=== PATIENT | male | born 1935 | race Caucasian/White ===

== ENCOUNTER → 2016-08-25 | Outpatient (CLI) | payer BC ==
[~2016-08-25] MED LIST: ASPEC81 PO; CIPR-255 PO; GLC850 PO; PRED1SUS OPR; VITAMIN PO
[2016-08-25 09:58] LABS: ESTIMATED AVERAGE GLUCOSE 94 mg/dl; HA1C FLAG Normal (Normal)
[2016-08-25 10:10] LABS: MEAN CELL VOLUME 96.5 fL (80-100); MEAN CORPUSCULAR HEMOGLOBIN 35.9 pg (25-34); MEAN CORPUSCULAR HGB CONC 37.2 g/dl (32-36); MEAN PLATELET VOLUME 10.6 fL (7.4-10.4); PLATELET COUNT 100 K/uL (130-400); RED BLOOD COUNT 4.04 M/uL (4.7-6.1); WHITE BLOOD COUNT 5.06 K/uL (4.8-10.8)
[2016-08-25 10:23] LABS: ALT/SGPT 25 U/L (12-78); AST/SGOT 19 U/L (15-37); BLOOD UREA NITROGEN 16 mg/dl (7-18); BUN/CREATININE RATIO 19.5 (10-20); CALCIUM 8.5 mg/dl (8.5-10.1); CARBON DIOXIDE 26 mmol/L (21-32); CHLORIDE 105 mmol/L (98-107); CHOLESTEROL 142 mg/dl (0-200); CREATININE 0.84 mg/dl (0.60-1.40); GLUCOSE 123 mg/dl (70-99); POTASSIUM 3.7 mmol/L (3.5-5.1); SODIUM 142 mmol/L (136-145); TRIGLYCERIDES 126 mg/dl (0-150); VERY LOW DENSITY LIPOPROT CALC 25 mg/dl
[2016-08-25 10:32] LABS: ALB/GLOB RATIO 1.3 (0.9-2); ALKALINE PHOSPHATASE 63 U/L (45-117); CHOLESTEROL/HDL RATIO 3.2; HDL CHOLESTEROL 44 mg/dl; LDL CHOLESTEROL CALCULATED 73 mg/dl
== END | disposition home or self-care (01) ==
LOC: C.LAB1850 07:56
PROVIDERS: ATTEND Family Medicine
DX: E53.8 Deficiency of other specified B group vitamins (principal); E03.9 Hypothyroidism, unspecified; E11.40 Type 2 diabetes mellitus with diabetic neuropathy, unspecified; R03.0 Elevated blood-pressure reading, without diagnosis of hypertension

== ENCOUNTER → 2016-10-03 | Outpatient (CLI) | payer BC | END | disposition home or self-care (01) | LOC: C.LABSPEC 11:05 | PROVIDERS: ATTEND Nurse Practitioner Family | DX: R39.9 Unspecified symptoms and signs involving the genitourinary system (principal) ==

== ENCOUNTER → 2016-10-07 | Outpatient (CLI) | payer BC ==
[~2016-10-07] MED LIST changes: +OPTIRAY 320 IV PRN
--- NOTE | 2016-10-07 09:51 | DIAGNOSTIC IMAGING REPORT ---
CT OF THE ABDOMEN AND PELVIS WITH AND WITHOUT CONTRAST HEMATURIA PROTOCOL CLINICAL HISTORY: Bladder carcinoma. Actinic keratosis. COMPARISON STUDY: IVP September 07, 2013. TECHNIQUE: Unenhanced and split bolus phase imaging of the abdomen and pelvis was performed. Injection of 119 cc Optiray [address] DOSE: 1031.24 mGy.cm FINDINGS: No renal, ureteral or bladder calculi are present. There is no hydronephrosis or hydroureter. There are small bilateral parapelvic cysts. No solid renal lesions are present. No upper tract urothelial lesions are identified. There is mild diffuse bladder wall thickening. No discrete bladder mass identified although the nondependent aspect of the bladder is unopacified. There are gallstones within the gallbladder. The spleen is mildly enlarged. The liver, adrenal glands and pancreas are normal. There is no biliary or pancreatic ductal dilatation. There is no evidence for a bowel obstruction. There is extensive left colon diverticulosis without evidence for acute diverticulitis. No enlarged abdominal lymph nodes are present. This extensive anterior osteophytosis of the spine. There is moderate coronary artery calcification. A few tiny nodules within visualized portions the lower lungs are likely benign. IMPRESSION: 1. No hydronephrosis or hydroureter. No upper tract urothelial lesions. 2. No urinary calculi. 3. Mild uniform bladder wall thickening. No discrete bladder mass identified although nondependent aspect of bladder unopacified. 3. No evidence of metastatic disease within the abdomen or pelvis. Electronically signed by: Feliz Clark M.D. 10/07/2016 9:49 AM Dictated Date/Time: 10/07/2016 9:41 AM
== END | disposition home or self-care (01) ==
LOC: C.CTS 08:59
PROVIDERS: ATTEND Urology
DX: C67.9 Malignant neoplasm of bladder, unspecified (principal); L57.0 Actinic keratosis

== ENCOUNTER → 2016-10-22 | Day surgery (SDC) | payer BC ==
[2016-10-09 08:37] VITALS: Ht 181.6 cm; Wt 87.3 kg
[~2016-10-22] VITALS: Ht 181.6 cm; Wt 87.3 kg
[~2016-10-22] MED LIST changes: +500ML BSS 0.3ML EPI 1:1000PF IRRIG ONE; +ACETAMINOPHEN 325 MG TAB PO PRN; +AMVISC PLUS 0.8ML SYRINGE INT OCU ONE; +ATROPINE SULFATE 0.1 MG/ML 5ML SYR IV PRN; +AcetaZOLAMIDE 250 MG TAB PO SCH; +BETAXOLOL HCL 0.25% OP SUSP PER DROP CHARGE OPR SCH; +BRIMONIDINE TART 0.2% OP SOLN PER DROP CHARGE ONE; +BSS FLUSH ONE; +ENDOCOAT 0.85ML SYRINGE INT OCU ONE; +EpHEDrine SULFATE INJ 50 MG/ML AMP IV PRN; +EpINEphrine INJ 1MG/ML AMP 1 MG/ML AMP ONE; -GLC850 PO; +LACTATED RINGER'S 1000ML 500 ML IV SCH; +LIDOCAINE 4% OP SOLN DROP CHARGE ONE; +LIDOCAINE 4% OP SOLN DROP CHARGE OPR SCH; +LIDOCAINE HCL 1% MPF 2 ML VIAL ONE; +MIDAZOLAM HCL 1 MG/ML 2ML VIAL ONE; +MIX: 4ML BSS 1ML EPI 1:1000 PF INSTIL ONE; +MOXIFLOXACIN OPH SOLN PER DROP CHARGE ONE; +OCUCOAT 1 ML SOLN IO ONE; +ONDANSETRON INJ 2 MG/ML 2 ML VIAL IV PRN; -OPTIRAY 320 IV PRN; +POVIDONE-IODINE OP SOLN 30 ML BTL ONE; +PROPARACAINE 0.5% OP SOLN PER DROP CHARGE OPR SCH; +TOBRAMYCIN/DEXAMETHASONE OPH OINT PER APPLN CHARGE ONE
[2016-10-22] MEDS: PHENYLEPHRINE HCL 2.5% OP SOLN PER DROP CHARGE OPR SCH ×2 (06:40→06:45)
[2016-10-22] MEDS: TROPICAMIDE 1% OP SOLN PER DROP CHARGE OPR SCH ×2 (06:41→06:46)
[2016-10-22] MEDS: CYCLOPENTOLATE HCL 1% OP SOLN PER DROP CHARGE OPR SCH ×2 (06:42→06:47)
[2016-10-22] MEDS: MOXIFLOXACIN OPH SOLN PER DROP CHARGE OPR SCH ×2 (06:43→06:50)
--- NOTE | 2016-10-22 06:56 | History & Physical Bridge - [place] ---
H&P Re-Evaluation Bridge Note: I have examined the patient, reviewed the History & Physical and in the interval since the performance of the History & Physical I have noted the following changes of clinical significance: No changes noted
--- NOTE | 2016-10-22 07:41 | Discharge Instructions-SurgCtr ---
Discharge Instructions Date of Service Oct 22, 2016. Visit Reason for Visit: Cataract Right Eye Discharge Discharge Diagnosis / Problem: lens implant right eye Discharge Goals Goal(s): Improve function Activity Recommendations Activity Limitations: resume your previous activity Lifting Limitations: no more than 10 pounds Exercise/Sports Limitations: gradually increase as tolerated May Resume Sexual Activity: when tolerated Shower/Bathe: tomorrow Driving or Machine Use: resume 1 day after discharge Anesthesia . Post Anesthesia Instructions: If you have had General Anesthesia or IV Sedation: * Do not drive today. * Resume driving when surgeon permits. * Do not make important decisions or sign legal documents today. * Call surgeon for: 1. Temperature elevations greater than 101 degrees F. 2. Uncontrollable pain. 3. Excessive bleeding. 4. Persistent nausea and vomiting. 5. Medication intolerance (nausea, vomiting or rash). * For nausea and vomiting use only clear liquids such as: tea, soda, bouillon until nausea subsides, then gradually increase diet as tolerated. * If you have any concerns or questions, call your surgeon's office. If physician is unavailable and it is an emergency, call 911 or go to the nearest emergency room. . Instructions / Follow-Up Instructions / Follow-Up ACTIVITY RECOMMENDATIONS: * Light activities. * Mild irritation and blurred vision are common for the first few days. * You may walk outside, read, watch television. * Redness around the white part of the eye is common. MEDICATIONS: Resume previous medications unless instructed otherwise by your surgeon. * Take white Diamox (Acetazolamide) tablet at 1 pm today. Start all eye drops at 1 pm today: * Eye drops (today and tomorrow): Prednisone - one drop in operative eye every 3 hours while awake Ofloxacin - one drop in operative eye every 3 hours while awake SPECIAL CARE INSTRUCTIONS: * Tape plastic shield over eye to sleep at night. Call your doctor at with any concerns or problems. FOLLOW UP VISIT: Follow-up with Dr Mcguire at [place] office as scheduled. Diet Recommendations Home Diet: no limitations Procedures Procedures Performed: cataract extraction with lens implant Pending Studies Studies pending at discharge: no Medical Emergencies . Who to Call and When: Medical Emergencies: If at any time you feel your situation is an emergency, please call 911 immediately. . Non-Emergent Contact Non-Emergency issues call your: Fire Technology Instructor Call Non-Emergent contact if: your pain is not controlled [phone] . . "Provider Documentation" section prepared by Darrell Mcguire.
[2016-10-22 07:43] VITALS: TEMP 36.7
--- NOTE | 2016-10-22 07:43 | [facility] Operative Report ---
Operative Report Date of Service Oct 22, 2016. Operative Report 1. PREOPERATIVE DIAGNOSIS: Senile nuclear cataract, right eye. 2. POSTOPERATIVE DIAGNOSIS: Senile nuclear cataract, right eye. 3. PROCEDURE: Phacoemulsification of right cataract with posterior chamber lens implant, type [employer]ch [employer] Lomb, model MI60L, power +21.0 diopters. ANESTHESIA: Local standby. SURGEON: Dr. Mcguire. COMPLICATIONS: None. OPERATING TIME: 10 minutes. 4. OPERATION AND FINDINGS: DESCRIPTION OF PROCEDURE: The right pupil was dilated. The anesthetic was administered using a topical technique. The right eye was prepped and draped. A speculum was placed. A clear corneal incision was formed. The chamber was filled with Amvisc Plus and Endocoat. Epinephrine solution was used. A paracentesis was placed. A capsulorrhexis was performed. The nucleus was hydrodissected. A dense lens was removed with phacoemulsification. Time was 10.79 seconds. The aspiration unit was used to remove the cortex. The capsule was filled with Amvisc Plus. The lens implant was folded and placed into the capsule. The incision was hydrated. The Amvisc was aspirated. The wound was secure. The chamber was deep. The pupil was round. Brimonidine, TobraDex ointment and Vigamox solution were placed. The speculum was removed. The patient was returned to the Recovery Room in stable condition. I attest to the content of the Intraoperative Record and any orders documented therein. Any exceptions are noted below. The scribe's documentation has been prepared in my presence, under my direction and personally reviewed by me in its entirety. I confirm that the note above accurately reflects all work, treatment, procedures, and medical decision making performed by me. I personally scribed for Darrell Mcguire M.D. (KELLY) on 10/22/16 at 07:42. Electronically submitted by Beatris Nash ([email or web address]).
--- NOTE | 2016-10-22 08:01 | Anesthesia Progress Nt - [facility] ---
Anesthesia Post Op Note Date & Time Oct 22, 2016 at 08:01 Vital Signs Pain Intensity: 0 Vital Signs Past 12 Hours Date Time Temp Pulse Resp B/P Pulse Ox O2 Delivery O2 Flow Rate FiO2 10/22/16 07:43 36.7 100 16 125/69 95 Room Air 10/22/16 06:32 36.6 95 20 164/65 97 Room Air Notes Mental Status: alert / awake / arousable, participated in evaluation Pt Amnestic to Procedure: Yes Nausea / Vomiting: adequately controlled Pain: adequately controlled Airway Patency, RR, SpO2: stable & adequate BP & HR: stable & adequate Hydration State: stable & adequate Anesthetic Complications: no major complications apparent
[2016-10-22 08:15] VITALS: BP 132/64; PULSE 89; O2SAT 96
== END | disposition home or self-care (01) ==
LOC: X.SURG 06:06
PROVIDERS: ATTEND Specialist
DX: H25.11 Age-related nuclear cataract, right eye (principal)

== ENCOUNTER → 2016-10-24 | Outpatient (CLI) | payer BC ==
[~2016-10-24] MED LIST changes: -500ML BSS 0.3ML EPI 1:1000PF IRRIG ONE; -ACETAMINOPHEN 325 MG TAB PO PRN; -AMVISC PLUS 0.8ML SYRINGE INT OCU ONE; -ATROPINE SULFATE 0.1 MG/ML 5ML SYR IV PRN; -AcetaZOLAMIDE 250 MG TAB PO SCH; -BETAXOLOL HCL 0.25% OP SUSP PER DROP CHARGE OPR SCH; -BRIMONIDINE TART 0.2% OP SOLN PER DROP CHARGE ONE; -BSS FLUSH ONE; -ENDOCOAT 0.85ML SYRINGE INT OCU ONE; -EpHEDrine SULFATE INJ 50 MG/ML AMP IV PRN; -EpINEphrine INJ 1MG/ML AMP 1 MG/ML AMP ONE; -LACTATED RINGER'S 1000ML 500 ML IV SCH; -LIDOCAINE 4% OP SOLN DROP CHARGE ONE; -LIDOCAINE 4% OP SOLN DROP CHARGE OPR SCH; -LIDOCAINE HCL 1% MPF 2 ML VIAL ONE; -MIDAZOLAM HCL 1 MG/ML 2ML VIAL ONE; -MIX: 4ML BSS 1ML EPI 1:1000 PF INSTIL ONE; -MOXIFLOXACIN OPH SOLN PER DROP CHARGE ONE; -OCUCOAT 1 ML SOLN IO ONE; -ONDANSETRON INJ 2 MG/ML 2 ML VIAL IV PRN; -POVIDONE-IODINE OP SOLN 30 ML BTL ONE; -PROPARACAINE 0.5% OP SOLN PER DROP CHARGE OPR SCH; -TOBRAMYCIN/DEXAMETHASONE OPH OINT PER APPLN CHARGE ONE
== END | disposition home or self-care (01) ==
LOC: C.LABSPEC 10:52
PROVIDERS: ATTEND Nurse Practitioner Family
DX: R39.9 Unspecified symptoms and signs involving the genitourinary system (principal)

== ENCOUNTER → 2016-10-28 | Outpatient (CLI) | payer BC | END | disposition home or self-care (01) | LOC: C.LABSPEC 11:40 | PROVIDERS: ATTEND Nurse Practitioner Family | DX: R39.9 Unspecified symptoms and signs involving the genitourinary system (principal) ==

== ENCOUNTER → 2016-11-05 | Day surgery (SDC) | payer BC ==
[2016-10-30 15:50] VITALS: Ht 181.6 cm; Wt 88.2 kg
[~2016-11-05] VITALS: Ht 181.6 cm; Wt 88.2 kg
[~2016-11-05] MED LIST changes: +500ML BSS 0.3ML EPI 1:1000PF IRRIG ONE; +ACETAMINOPHEN 325 MG TAB PO PRN; +AMVISC PLUS 0.8ML SYRINGE INT OCU ONE; +ATROPINE SULFATE 0.1 MG/ML 5ML SYR IV PRN; +AcetaZOLAMIDE 250 MG TAB PO SCH; +BETAXOLOL HCL 0.25% OP SUSP PER DROP CHARGE OPL SCH; +BRIMONIDINE TART 0.2% OP SOLN PER DROP CHARGE ONE; +BSS FLUSH ONE; +ENDOCOAT 0.85ML SYRINGE INT OCU ONE; +EpHEDrine SULFATE INJ 50 MG/ML AMP IV PRN; +EpINEphrine INJ 1MG/ML AMP 1 MG/ML AMP ONE; +LACTATED RINGER'S 1000ML 500 ML IV SCH; +LIDOCAINE 4% OP SOLN DROP CHARGE ONE; +LIDOCAINE 4% OP SOLN DROP CHARGE OPL SCH; +LIDOCAINE HCL 1% MPF 2 ML VIAL ONE; +MIDAZOLAM HCL 1 MG/ML 2ML VIAL ONE; +MIX: 4ML BSS 1ML EPI 1:1000 PF INSTIL ONE; +MOXIFLOXACIN OPH SOLN PER DROP CHARGE ONE; +OCUCOAT 1 ML SOLN IO ONE; +POVIDONE-IODINE OP SOLN 30 ML BTL ONE; +PROPARACAINE 0.5% OP SOLN PER DROP CHARGE OPL SCH; +TOBRAMYCIN/DEXAMETHASONE OPH OINT PER APPLN CHARGE ONE
[2016-11-05] MEDS: PHENYLEPHRINE HCL 2.5% OP SOLN PER DROP CHARGE OPL SCH ×2 (10:51→10:56)
[2016-11-05] MEDS: TROPICAMIDE 1% OP SOLN PER DROP CHARGE OPL SCH ×2 (10:52→10:57)
[2016-11-05] MEDS: CYCLOPENTOLATE HCL 1% OP SOLN PER DROP CHARGE OPL SCH ×2 (10:53→10:58)
[2016-11-05] MEDS: MOXIFLOXACIN OPH SOLN PER DROP CHARGE OPL SCH ×2 (10:54→11:04)
--- NOTE | 2016-11-05 11:36 | Discharge Instructions-SurgCtr ---
Discharge Instructions Date of Service Nov 05, 2016. Visit Reason for Visit: Left Cataract Discharge Discharge Diagnosis / Problem: lens implant left eye Discharge Goals Goal(s): Improve function Activity Recommendations Activity Limitations: resume your previous activity Lifting Limitations: no more than 10 pounds Exercise/Sports Limitations: gradually increase as tolerated May Resume Sexual Activity: when tolerated Shower/Bathe: tomorrow Driving or Machine Use: resume 1 day after discharge Anesthesia . Post Anesthesia Instructions: If you have had General Anesthesia or IV Sedation: * Do not drive today. * Resume driving when surgeon permits. * Do not make important decisions or sign legal documents today. * Call surgeon for: 1. Temperature elevations greater than 101 degrees F. 2. Uncontrollable pain. 3. Excessive bleeding. 4. Persistent nausea and vomiting. 5. Medication intolerance (nausea, vomiting or rash). * For nausea and vomiting use only clear liquids such as: tea, soda, bouillon until nausea subsides, then gradually increase diet as tolerated. * If you have any concerns or questions, call your surgeon's office. If physician is unavailable and it is an emergency, call 911 or go to the nearest emergency room. . Instructions / Follow-Up Instructions / Follow-Up ACTIVITY RECOMMENDATIONS: * Light activities. * Mild irritation and blurred vision are common for the first few days. * You may walk outside, read, watch television. * Redness around the white part of the eye is common. MEDICATIONS: Resume previous medications unless instructed otherwise by your surgeon. * Take white Diamox (Acetazolamide) tablet at 1 pm today. Start all eye drops at 1 pm today: * Eye drops (today and tomorrow): Prednisone - one drop in operative eye every 3 hours while awake Ofloxacin - one drop in operative eye every 3 hours while awake SPECIAL CARE INSTRUCTIONS: * Tape plastic shield over eye to sleep at night. Call your doctor at with any concerns or problems. FOLLOW UP VISIT: Follow-up with Dr Mcguire at [place] office as scheduled. Diet Recommendations Home Diet: no limitations Procedures Procedures Performed: cataract extraction with lens implant Pending Studies Studies pending at discharge: no Medical Emergencies . Who to Call and When: Medical Emergencies: If at any time you feel your situation is an emergency, please call 911 immediately. . Non-Emergent Contact Non-Emergency issues call your: Implementation Coordinator Call Non-Emergent contact if: your pain is not controlled [phone] . . "Provider Documentation" section prepared by Darrell Mcguire.
--- NOTE | 2016-11-05 11:37 | [facility] Operative Report ---
Operative Report Date of Service Nov 05, 2016. Operative Report 1. PREOPERATIVE DIAGNOSIS: Senile nuclear cataract, left eye. 2. POSTOPERATIVE DIAGNOSIS: Senile nuclear cataract, left eye. 3. PROCEDURE: Phacoemulsification of left cataract with posterior chamber lens implant, type B[employer]ch [employer] Lomb, model MI60L, power +22.0 diopters. ANESTHESIA: Local standby. SURGEON: Dr. Mcguire. COMPLICATIONS: None. OPERATING TIME: 10 minutes. 4. OPERATION AND FINDINGS: DESCRIPTION OF PROCEDURE: The left pupil was dilated. The anesthetic was administered using a topical technique. The left eye was prepped and draped. A speculum was placed. A clear corneal incision was formed. The chamber was filled with Amvisc Plus and Endocoat. Epinephrine solution was used. A paracentesis was placed. A capsulorrhexis was performed. The nucleus was hydrodissected. The lens was removed with phacoemulsification. Time was 4.90 seconds. The aspiration unit was used to remove the cortex. The capsule was filled with Amvisc Plus. The lens implant was folded and placed into the capsule. The incision was hydrated. The Amvisc was aspirated. The wound was secure. The chamber was deep. The pupil was round. Brimonidine, TobraDex ointment and Vigamox solution were placed. The speculum was removed. The patient was returned to the Recovery Room in stable condition. I attest to the content of the Intraoperative Record and any orders documented therein. Any exceptions are noted below. The scribe's documentation has been prepared in my presence, under my direction and personally reviewed by me in its entirety. I confirm that the note above accurately reflects all work, treatment, procedures, and medical decision making performed by me. I personally scribed for Darrell Mcguire M.D. ([email or web address]) on 11/05/16 at 11:37. Electronically submitted by Beatris Nash ([email or web address]).
[2016-11-05 11:41] VITALS: TEMP 36.5
--- NOTE | 2016-11-05 12:04 | Anesthesia Progress Nt - [facility] ---
Anesthesia Post Op Note Date & Time Nov 05, 2016 at 12:04 Vital Signs Pain Intensity: 0 Vital Signs Past 12 Hours Date Time Temp Pulse Resp B/P Pulse Ox O2 Delivery O2 Flow Rate FiO2 11/05/16 11:41 36.5 80 14 143/70 95 Room Air 11/05/16 10:45 36.7 86 18 151/87 97 Room Air Notes Mental Status: alert / awake / arousable, participated in evaluation Pt Amnestic to Procedure: Yes Nausea / Vomiting: adequately controlled Pain: adequately controlled Airway Patency, RR, SpO2: stable & adequate BP & HR: stable & adequate Hydration State: stable & adequate Anesthetic Complications: no major complications apparent
[2016-11-05 12:05] VITALS: BP 141/83; PULSE 77; O2SAT 96
== END | disposition home or self-care (01) ==
LOC: X.SURG 10:10
PROVIDERS: ATTEND Specialist
DX: H25.12 Age-related nuclear cataract, left eye (principal); Z85.51 Personal history of malignant neoplasm of bladder; Z79.82 Long term (current) use of aspirin

== ENCOUNTER → 2016-12-04 | Outpatient (CLI) | payer BC ==
[~2016-12-04] MED LIST changes: -500ML BSS 0.3ML EPI 1:1000PF IRRIG ONE; -ACETAMINOPHEN 325 MG TAB PO PRN; -AMVISC PLUS 0.8ML SYRINGE INT OCU ONE; -ATROPINE SULFATE 0.1 MG/ML 5ML SYR IV PRN; -AcetaZOLAMIDE 250 MG TAB PO SCH; -BETAXOLOL HCL 0.25% OP SUSP PER DROP CHARGE OPL SCH; -BRIMONIDINE TART 0.2% OP SOLN PER DROP CHARGE ONE; -BSS FLUSH ONE; -ENDOCOAT 0.85ML SYRINGE INT OCU ONE; -EpHEDrine SULFATE INJ 50 MG/ML AMP IV PRN; -EpINEphrine INJ 1MG/ML AMP 1 MG/ML AMP ONE; -LACTATED RINGER'S 1000ML 500 ML IV SCH; -LIDOCAINE 4% OP SOLN DROP CHARGE ONE; -LIDOCAINE 4% OP SOLN DROP CHARGE OPL SCH; -LIDOCAINE HCL 1% MPF 2 ML VIAL ONE; -MIDAZOLAM HCL 1 MG/ML 2ML VIAL ONE; -MIX: 4ML BSS 1ML EPI 1:1000 PF INSTIL ONE; -MOXIFLOXACIN OPH SOLN PER DROP CHARGE ONE; -OCUCOAT 1 ML SOLN IO ONE; -POVIDONE-IODINE OP SOLN 30 ML BTL ONE; -PROPARACAINE 0.5% OP SOLN PER DROP CHARGE OPL SCH; -TOBRAMYCIN/DEXAMETHASONE OPH OINT PER APPLN CHARGE ONE
== END | disposition home or self-care (01) ==
LOC: C.PATHSPEC 17:18
PROVIDERS: ATTEND Urology
DX: C67.9 Malignant neoplasm of bladder, unspecified (principal)

== ENCOUNTER → 2017-04-15 | Outpatient (CLI) | payer BC ==
[2017-04-15 09:38] LABS: HEMATOCRIT 38.6 % (42-52); MEAN CELL VOLUME 95.5 fL (80-100); MEAN CORPUSCULAR HEMOGLOBIN 34.9 pg (25-34); MEAN CORPUSCULAR HGB CONC 36.5 g/dl (32-36); RED BLOOD COUNT 4.04 M/uL (4.7-6.1); WHITE BLOOD COUNT 4.92 K/uL (4.8-10.8)
[2017-04-15 09:44] LABS: ESTIMATED AVERAGE GLUCOSE 97 mg/dl; HA1C FLAG Normal (Normal)
[2017-04-15 09:45] LABS: ALT/SGPT 21 U/L (12-78); AST/SGOT 18 U/L (15-37); BLOOD UREA NITROGEN 15 mg/dl (7-18); BUN/CREATININE RATIO 13.8 (10-20); CALCIUM 8.3 mg/dl (8.5-10.1); CARBON DIOXIDE 27 mmol/L (21-32); CHLORIDE 104 mmol/L (98-107); GLUCOSE 216 mg/dl (70-99); POTASSIUM 4.1 mmol/L (3.5-5.1); SODIUM 138 mmol/L (136-145)
[2017-04-15 10:03] LABS: MEAN PLATELET VOLUME 10.2 fL (7.4-10.4); PLATELET COUNT 98 K/uL (130-400)
[2017-04-15 10:06] LABS: BASO % 0.2 %; BASO ABS # 0.01 K/uL (0-0.2); COMPLETE YES; EOS % 1.8 %; HYPERSEGMENTED POLYS 1+; IG% 0.4 %; LYMPH % 22.8 %; LYMPH ABS # 1.12 K/uL (1.2-3.4); MONO % 7.1 %; NEUT % 67.7 %; PLT ESTIMATE DECREASED
[2017-04-15 10:18] LABS: ALB/GLOB RATIO 1.2 (0.9-2); ALKALINE PHOSPHATASE 62 U/L (45-117)
== END | disposition home or self-care (01) ==
LOC: C.LAB1850 08:13
PROVIDERS: ATTEND Family Medicine
DX: C67.9 Malignant neoplasm of bladder, unspecified (principal); E53.8 Deficiency of other specified B group vitamins; E11.9 Type 2 diabetes mellitus without complications

== ENCOUNTER → 2017-10-13 | Outpatient (CLI) | payer BC ==
[2017-10-13 09:40] LABS: BLOOD UREA NITROGEN 23 mg/dl (7-18); CALCIUM 8.6 mg/dl (8.5-10.1); CARBON DIOXIDE 26 mmol/L (21-32); GLUCOSE 204 mg/dl (70-99); POTASSIUM 3.9 mmol/L (3.5-5.1); SODIUM 137 mmol/L (136-145)
[2017-10-13 10:24] LABS: HEMOGLOBIN A1C 4.9 % (4.5-5.6)
== END | disposition home or self-care (01) ==
LOC: C.LAB1850 07:35
PROVIDERS: ATTEND Family Medicine
DX: E11.9 Type 2 diabetes mellitus without complications (principal)

== ENCOUNTER → 2017-12-17 | Outpatient (CLI) | payer BC | END | disposition home or self-care (01) | LOC: C.PATHSPEC 17:35 | PROVIDERS: ATTEND Urology | DX: Z85.51 Personal history of malignant neoplasm of bladder (principal) ==

== ENCOUNTER 2022-05-20 15:42 | Inpatient (IN) ==
[2022-05-20] MEDS ORDERED: SODIUM CHLORIDE 0.9% 500 ML IV SCH (16:30)
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
[2022-05-20 17:04] LABS: iSTAT Creatinine 0.9 mg/dl (0.6-1.3); iSTAT Hemoglobin 11.9 g/dl (14.0-18.0); iSTAT Ionized Calcium 1.14 mmol/l (1.12-1.32); iSTAT Potassium 4.1 mmol/L (3.3-5.0)
[2022-05-20 17:09] LABS: Basophils # (auto) 0.04 K/uL (0-0.2); Basophils % (auto) 0.7 %; Eosinophils # (auto) 0.04 K/uL (0-0.50); Eosinophils % (auto) 0.7 %; Hematocrit (blood only) 34.2 % (40.1-51.0); Hemoglobin 12.5 g/dl (14.0-18.0); Immature Granulocytes # (auto) 0.06 K/uL (0.00-0.02); Immature Granulocytes % (auto) 1.1 %; Lymphocytes # (auto) 0.63 K/uL (1.2-3.4); Lymphocytes % (auto) 11.3 %; Mean Corpuscular Hemoglobin 34.6 pg (25.0-34.0); Mean Corpuscular Hgb Conc 36.5 g/dL (32.0-36.0); Mean Corpuscular Volume 94.7 fL (80.0-100.0); Mean Platelet Volume 9.6 fL (9.4-12.4); Monocytes # (auto) 0.36 K/uL (0.24-0.82); Monocytes % (auto) 6.5 %; Neutrophils # (auto) 4.43 K/uL (1.4-6.5); Neutrophils % (auto) 79.7 %; Platelet Count 125 K/uL (130-400); RDW Coefficient of Variation 14.7 % (11.5-14.5); RDW Standard Deviation 50.4 fL (36.4-46.3); Red Blood Count 3.61 M/uL (4.63-6.08); White Blood Count 5.56 K/ul (4.8-10.8)
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
[2022-05-20 17:21] LABS: Partial Thromboplastin Ratio 0.9; Partial Thromboplastin Time 23.6 Seconds (21.0-31.0); Prothrombin Time 10.9 Seconds (9.0-12.0)
[2022-05-20] MEDS ORDERED: ACETAMINOPHEN 1,000 MG/100 ML VIAL IV STA (17:29)
[2022-05-20 17:32] LABS: Albumin Globulin Ratio 1.6 (0.9-2); Albumin Level 3.9 gm/dl (3.4-5.0); BUN Creatinine Ratio 19.8 (10-20); Bilirubin,Total 1.3 mg/dl (0.2-1.0); Calcium 8.8 mg/dl (8.5-10.1); Creatinine Clr Calc Pharmacy 64.9 ml/min; Est GFR (Non-African American) 70.8 ml/min; Globulin 2.4 gm/dl (2.5-4.0); Magnesium 1.7 mg/dl (1.7-2.4); Total Protein 6.3 gm/dl (6.0-8.3)
[2022-05-20 17:40] LABS: Troponin I High Sensitivity 319.1 pg/ml (0-20)
[2022-05-20 17:44] LABS: Thyroid Stimulating Hormone 9.872 uIu/ml (0.300-4.500)
[2022-05-20] MEDS ORDERED: OPTIRAY 300 500mL IV ONE (17:54)
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
[2022-05-20 18:21] LABS: T4 Free Thyroxine 0.79 ng/dl (0.61-1.60)
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
[2022-05-20 18:47] LABS: Appearance Urine Clear (Clear); Bilirubin Urine Negative (Negative); Blood Urine Negative (Negative); Color Urine Yellow; Glucose Urine UA 2+ (Negative); Ketones Urine 1+ (Negative); Leukocyte Esterase Urine Negative (Negative); Nitrite Urine Negative (Negative); Protein Urine Negative (Negative); Specific Gravity Urine 1.029 (1.000-1.030); Urobilinogen Urine Negative (Negative)
--- NOTE | 2022-05-20 19:18 | Billing Data ---
Date of Service May 20, 2022 Coding Level of Care Code 21514 Subseq Obs Care Lvl 3
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
[2022-05-20] MEDS ORDERED: CARBOHYDRATES FOR HYPOGLYCEMIA PO PRN (21:27)
[2022-05-20] MEDS ORDERED: DEXTROSE 50% 50 ML SYRINGE IV PRN (21:27)
[2022-05-20] MEDS ORDERED: GLUCAGON FOR INJ 1 MG VIAL SQ PRN (21:27)
[2022-05-20] MEDS ORDERED: GLUCOSE 10 TAB/TUBE PO PRN (21:27)
[2022-05-20] MEDS ORDERED: GLUCOSE 40% GEL 15 GM TUBE PO PRN (21:27)
[2022-05-20] MEDS: INSULIN ASPART PER UNIT SC SCH (22:02)
[2022-05-20] MEDS: MAGNESIUM SULFATE / D5W 1 GM/100 ML BAG IV SCH ×2 (22:03→23:56)
[2022-05-20] MEDS: MoRPHine SULFATE 2 MG/ML CARP IV PRN (22:06)
[2022-05-21 05:54] LABS: Basophils # (auto) 0.03 K/uL (0-0.2); Basophils % (auto) 0.4 %; Eosinophils # (auto) 0.02 K/uL (0-0.50); Eosinophils % (auto) 0.3 %; Hematocrit (blood only) 33.3 % (40.1-51.0); Hemoglobin 12.3 g/dl (14.0-18.0); Immature Granulocytes # (auto) 0.03 K/uL (0.00-0.02); Immature Granulocytes % (auto) 0.4 %; Lymphocytes # (auto) 0.84 K/uL (1.2-3.4); Mean Corpuscular Hemoglobin 34.7 pg (25.0-34.0); Mean Corpuscular Hgb Conc 36.9 g/dL (32.0-36.0); Mean Corpuscular Volume 94.1 fL (80.0-100.0); Mean Platelet Volume 9.7 fL (9.4-12.4); Monocytes # (auto) 0.65 K/uL (0.24-0.82); Monocytes % (auto) 9.3 %; Neutrophils # (auto) 5.44 K/uL (1.4-6.5); Neutrophils % (auto) 77.6 %; Platelet Count 123 K/uL (130-400); RDW Coefficient of Variation 14.8 % (11.5-14.5); Red Blood Count 3.54 M/uL (4.63-6.08); White Blood Count 7.01 K/ul (4.8-10.8)
[2022-05-21] MEDS: MoRPHine SULFATE 2 MG/ML CARP IV PRN ×2 (06:08→15:23)
[2022-05-21 06:34] LABS: Troponin I High Sensitivity 838.3 pg/ml (0-20)
[2022-05-21 06:51] LABS: BUN Creatinine Ratio 17.1 (10-20); Calcium 8.4 mg/dl (8.5-10.1); Creatinine Clr Calc Pharmacy 74.3 ml/min; Est GFR (African American) 92.2 ml/min; Est GFR (Non-African American) 79.5 ml/min; Magnesium 2.1 mg/dl (1.7-2.4); Potassium 3.7 mmol/L (3.5-5.1)
[2022-05-21] MEDS: INSULIN ASPART PER UNIT SC SCH ×4 (08:14→20:27)
[2022-05-21] MEDS ORDERED: POTASSIUM CHLORIDE CRTAB 20 MEQ TABCR PO STA (09:54)
[2022-05-21] MEDS: BENZONATATE 100 MG CAPSULE PO PRN ×3 (10:02→23:10)
[2022-05-21] MEDS: KETOROLAC TROMETHAMINE 15 MG/ML VIAL IV PRN ×2 (10:14→23:10)
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
--- NOTE | 2022-05-21 11:43 | XCELERA ---
[id number]
--- NOTE | 2022-05-21 14:21 | Electrocardiogram Report ---
Test Reason : Blood Pressure : / mmHG Vent. Rate : 096 BPM Atrial Rate : 096 BPM P-R Int : 256 ms QRS Dur : 146 ms QT Int : 370 ms P-R-T Axes : -25 131 012 degrees QTc Int : 467 ms Sinus rhythm with 1st degree A-V block Right bundle branch block Left posterior fascicular block Bifascicular block Abnormal ECG When compared with ECG of 12-FEB-2022 12:18, No significant change Confirmed by Darrell Liu ([id number]) on 05/21/2022 2:20:43 PM Referred By: REFERRED SELF Confirmed By:Darrell Liu
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
--- NOTE | 2022-05-21 16:57 | Billing Data ---
Date of Service May 21, 2022 Coding Level of Care Code 25831 Subseq Hosp Care Lvl 3
[2022-05-21] MEDS: TAMSULOSIN HCL 0.4 MG CAP PO SCH (20:26)
[2022-05-21] MEDS: ACETAMINOPHEN 325 MG TAB PO PRN (20:26)
[2022-05-22] MEDS: ACETAMINOPHEN 325 MG TAB PO PRN ×4 (06:24→21:14)
[2022-05-22] MEDS: BENZONATATE 100 MG CAPSULE PO PRN ×3 (06:24→21:14)
[2022-05-22 07:47] LABS: Basophils # (auto) 0.02 K/uL (0-0.2); Basophils % (auto) 0.3 %; Eosinophils # (auto) 0.05 K/uL (0-0.50); Eosinophils % (auto) 0.7 %; Hematocrit (blood only) 31.6 % (40.1-51.0); Hemoglobin 11.9 g/dl (14.0-18.0); Immature Granulocytes # (auto) 0.04 K/uL (0.00-0.02); Immature Granulocytes % (auto) 0.6 %; Lymphocytes # (auto) 0.74 K/uL (1.2-3.4); Lymphocytes % (auto) 11.1 %; Mean Corpuscular Hemoglobin 35.7 pg (25.0-34.0); Mean Corpuscular Hgb Conc 37.7 g/dL (32.0-36.0); Mean Corpuscular Volume 94.9 fL (80.0-100.0); Mean Platelet Volume 9.1 fL (9.4-12.4); Monocytes # (auto) 0.66 K/uL (0.24-0.82); Monocytes % (auto) 9.9 %; Neutrophils # (auto) 5.16 K/uL (1.4-6.5); Neutrophils % (auto) 77.4 %; Platelet Count 110 K/uL (130-400); RDW Coefficient of Variation 15.2 % (11.5-14.5); RDW Standard Deviation 51.2 fL (36.4-46.3); Red Blood Count 3.33 M/uL (4.63-6.08); White Blood Count 6.67 K/ul (4.8-10.8)
[2022-05-22 08:10] LABS: BUN Creatinine Ratio 24.5 (10-20); Calcium 8.2 mg/dl (8.5-10.1); Creatinine Clr Calc Pharmacy 64.8 ml/min; Est GFR (African American) 84.2 ml/min; Est GFR (Non-African American) 72.6 ml/min; Potassium 4.3 mmol/L (3.5-5.1)
[2022-05-22] MEDS: INSULIN ASPART PER UNIT SC SCH ×4 (08:34→21:12)
[2022-05-22] MEDS ORDERED: BENZONATATE 100 MG CAPSULE PO ONE (09:59)
[2022-05-22] MEDS ORDERED: ACETAMINOPHEN 650 MG SUPP PR STA (09:59)
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
[2022-05-22] MEDS ORDERED: LIDOCAINE 1% LOCAL 20 ML VIAL ONE (14:02)
[2022-05-22] MEDS ORDERED: VANCOMYCIN HCL 1000MG/20ML VIAL ONE ×2 (14:03→14:55)
[2022-05-22] MEDS ORDERED: WATER, STERILE FOR INJ 10 ML VIAL ONE ×2 (14:03→14:55)
[2022-05-22] MEDS ORDERED: BUPIVACAINE 0.25% 30 ML VIAL ONE (14:03)
--- NOTE | 2022-05-22 14:39 | Pre Anesthesia Assessment ---
Date of Service May 22, 2022 Pre Sedation Assessment Vital Signs Temp Pulse Pulse Resp BP Pulse Ox O2 Del Method 05/22/22 06:15 93 H 05/22/22 11:09 36.8 C 77 18 130/65 98 Room Air 05/22/22 07:00 Room Air 05/22/22 03:08 36.8 C 79 18 130/69 96 Room Air 05/21/22 22:19 66 05/21/22 22:54 36.8 C 68 16 126/60 96 Room Air 05/21/22 20:00 Room Air 05/21/22 15:09 81 05/21/22 14:55 36.5 C 89 18 145/75 H 96 Room Air Cardiovascular + regular rate and + regular rhythm Respiratory + respiratory effort normal Pre-Sedation Airway Assessment Smoking Status: Never smoker Hx Sleep Apnea: No Hx Difficult Intubation: No Short, Thick Neck: No Thyromental Distance: > or= 3.5 Finger Breadths Oral Cavity: + WNL Mallampati Class: III ASA: ASA3 Procedure Planning Contraindications for Sedation: none Current Medications Reviewed: Yes Notes The planned sedation has been discussed with the patient. Informed Consent was obtained. I have identified the patient, determined the appropriateness of sedation and have assessed the patient immediately prior to the procedure. All medicine(s) and interventions are by my order.
[2022-05-22] MEDS ORDERED: MIDAZOLAM HCL 5 MG/ML 1 ML VIAL ONE (15:03)
[2022-05-22] MEDS ORDERED: fentaNYL citrate 100 MCG/2 ML VIAL ONE (15:03)
[2022-05-22] MEDS ORDERED: ceFAZolin 330 MG/ML 1 GM VIAL ONE (15:04)
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
--- NOTE | 2022-05-22 16:08 | Post Anesthesia Assessment ---
Date of Service May 22, 2022 Post Sedation Assessment Vital Signs Temp Pulse Pulse Pulse Resp BP Pulse Ox 05/22/22 15:00 36.6 C 86 18 172/79 H 95 05/22/22 06:15 93 H 05/22/22 11:09 36.8 C 77 18 130/65 98 05/22/22 07:00 05/22/22 03:08 36.8 C 79 18 130/69 96 05/21/22 22:19 66 05/21/22 22:54 36.8 C 68 16 126/60 96 05/21/22 20:00 O2 Del Method 05/22/22 15:00 Room Air 05/22/22 06:15 05/22/22 11:09 Room Air 05/22/22 07:00 Room Air 05/22/22 03:08 Room Air 05/21/22 22:19 05/21/22 22:54 Room Air 05/21/22 20:00 Room Air Recovery Score Activity: Moves 4 extremities Respiration: Deep Breath/Cough Circulation: +/-20% PreAnes Value Consciousness: Arouseable (by name) Oxygen Saturation: > 92% On Room Air Discharge Sedation Level of Care: Fast Track Phase II Post Sedation Plan On clinical assessment, the patient appears to have tolerated the sedation without complications. Patient is recovering as anticipated. Patient will continue to be monitored by nursing and may be discharged when sedation discharge criteria are met per below protocol. Upon Completions of procedure up to 15 minutes continue every 5 minute vital signs and the P.A.R. score; then discharge to a Phase I or Fast Track to Phase II per the following guidelines: * Discharge Patient to appropriate Phase II area if PAR is 8 or greater or return to pre- procedure baseline. The post - procedure orders will be as directed. * If PAR score is less than 8 or not return to pre-procedure baseline then patient will follow Phase I monitoring till PAR is reached for Phase II. The Phase I may be done in procedure room or may call to secure a Phase I area. * If naloxone or flumazenil are used for reversal, hold in Phase I for continued monitoring from when last reversal dose was given for a minimum of 60 minutes or longer pending the nurse and/or physician discretion of patient condition before discharge to Phase II. Please call the Sedation Physician to re-evaluate and complete post-note for discharge to Phase II area. Do NOT discharge from procedure sedation or Phase 1 until post- sedation evaluation note is complete by procedure /sedation MD Sedation Discharge Instructions to be given to the patient at discharge to home.
[2022-05-22] MEDS ORDERED: oxyCODONE HCL IR 5 MG TAB (IMMEDIATE RELEASE) PO PRN (16:14)
--- NOTE | 2022-05-22 16:45 | Billing Data ---
Date of Service May 22, 2022 Coding Level of Care Code 08981 Subseq Hosp Care Lvl 2
[2022-05-22] MEDS: MoRPHine SULFATE 2 MG/ML CARP IV PRN (17:36)
[2022-05-22] MEDS: TAMSULOSIN HCL 0.4 MG CAP PO SCH (21:13)
[2022-05-22] MEDS: CALCIUM CARBONATE 500 MG CHEWABLE TAB PO PRN (21:31)
[2022-05-22] MEDS ORDERED: ceFAZolin 1000MG 1,000 MG/7.5 ML SYR IV ONE (23:00)
--- NOTE | 2022-05-23 05:41 | Electrocardiogram Report ---
Test Reason : Blood Pressure : / mmHG Vent. Rate : 094 BPM Atrial Rate : 094 BPM P-R Int : 264 ms QRS Dur : 140 ms QT Int : 404 ms P-R-T Axes : 000 131 040 degrees QTc Int : 505 ms Sinus rhythm with 1st degree A-V block Right bundle branch block Anteroseptal infarct (cited on or before 21-MAY-2022) Abnormal ECG When compared with ECG of 21-MAY-2022 17:15, Sinus rhythm is no longer with 2nd degree A-V block (Mobitz I) Confirmed by Eduardo Castellanos ([id number]) on 05/23/2022 5:40:50 AM Referred By: REFERRED SELF Confirmed By:Eduardo Castellanos
[2022-05-23] MEDS: CALCIUM CARBONATE 500 MG CHEWABLE TAB PO PRN (06:27)
[2022-05-23] MEDS: BENZONATATE 100 MG CAPSULE PO PRN ×2 (06:27→14:27)
[2022-05-23] MEDS: ACETAMINOPHEN 325 MG TAB PO PRN ×3 (06:27→14:28)
[2022-05-23 06:52] LABS: Basophils # (auto) 0.02 K/uL (0-0.2); Basophils % (auto) 0.3 %; Eosinophils # (auto) 0.03 K/uL (0-0.50); Eosinophils % (auto) 0.5 %; Hematocrit (blood only) 31.7 % (40.1-51.0); Hemoglobin 11.7 g/dl (14.0-18.0); Immature Granulocytes # (auto) 0.05 K/uL (0.00-0.02); Immature Granulocytes % (auto) 0.8 %; Lymphocytes # (auto) 0.71 K/uL (1.2-3.4); Lymphocytes % (auto) 10.9 %; Mean Corpuscular Hemoglobin 34.8 pg (25.0-34.0); Mean Corpuscular Hgb Conc 36.9 g/dL (32.0-36.0); Mean Corpuscular Volume 94.3 fL (80.0-100.0); Mean Platelet Volume 9.9 fL (9.4-12.4); Monocytes # (auto) 0.58 K/uL (0.24-0.82); Monocytes % (auto) 8.9 %; Neutrophils % (auto) 78.6 %; Platelet Count 120 K/uL (130-400); RDW Coefficient of Variation 15.3 % (11.5-14.5); RDW Standard Deviation 52.6 fL (36.4-46.3); Red Blood Count 3.36 M/uL (4.63-6.08); White Blood Count 6.49 K/ul (4.8-10.8)
[2022-05-23 07:15] LABS: BUN Creatinine Ratio 30.2 (10-20); Calcium 8.5 mg/dl (8.5-10.1); Creatinine Clr Calc Pharmacy 70.9 ml/min; Est GFR (African American) 90.4 ml/min; Potassium 4.3 mmol/L (3.5-5.1)
[2022-05-23] MEDS: INSULIN ASPART PER UNIT SC SCH ×2 (08:44→12:10)
--- NOTE | 2022-05-23 09:12 | XRay Report ---
XR chest 2V PA/lateral CLINICAL HISTORY: Pacemaker insertion. COMPARISON STUDY: Chest radiograph and chest CT May 20, 2022. FINDINGS: There is no pneumothorax placement of a dual-lead left subclavian pacer. Lead tips project over the right atrial appendage and right ventricle. There are small bilateral pleural effusions with mild bibasilar opacities. Cardiomegaly is noted. No evidence for overt pulmonary edema. IMPRESSION: No pneumothorax placement of a dual-lead left subclavian pacemaker. ACT 112: Negative or not required by law. Electronically signed by: Feliz Clark M.D. 05/23/2022 9:11 AM
[2022-05-23] MEDS ORDERED: COVID19 BIVALENT Vaccine (Booster ONLY--Pfizer) 30mcg/0.3mL IM ONE (09:31)
--- NOTE | 2022-05-23 09:41 | Cardiology Progress Note ---
Date of Service May 23, 2022 Assessment & Plan (1) Syncope: (2) Trifascicular block: Plan 1. The patient underwent successful implantation of a dual-chamber permanent pacemaker yesterday. No evident complication. This was in the setting of syncope and severe baseline conduction disease. At this point would seem reasonable to consider discharge. From our standpoint appears to be doing well. He refrain from lifting left arm above the shoulder for 6 weeks. He should keep the wound dry and Steri-Strips intact until follow-up in our clinic next week. I will arrange follow-up with 1 of our nurses. Admission and Anticipated Discharge Date Admission Date: May 20, 2022 Subjective Morning patient claimed he feeling well. He had some difficulty sleeping. He has some discomfort with coughing around the left thorax. He did not report significant symptoms associated with the device implant in the left upper pectoral area. Review of Systems Review of Systems: Per HPI Physical Exam Physical Exam: evaluation the device implant site reveals some mild ecchymosis. No hematoma. No drainage. No erythema. Results & Data ([facility]) Vital Signs (Past 12 Hours) Vital Signs Temp Pulse Pulse Resp BP Pulse Ox O2 Del Method 05/23/22 07:32 36.9 C 97 H 17 122/60 96 Room Air 05/23/22 07:21 108 H 05/23/22 03:33 36.7 C 88 20 109/61 95 Room Air 05/22/22 23:15 98 H 05/22/22 23:23 36.5 C 91 H 20 148/75 H 91 Room Air Diagnostic Findings Chest x-ray obtained this morning reveals stable lead placement without pneumothorax. I performed a complete device interrogation which revealed normal function of both the atrial ventricular leads. Normal device function. Nearly 100% ventricular pacing.
--- NOTE | 2022-05-23 13:45 | XCELERA ---
[id number]
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
--- NOTE | 2022-05-23 16:40 | Billing Data ---
Date of Service May 23, 2022 Coding Level of Care Code D/C DAY MANAGEMENT <30 MINS
== END 2022-05-23 14:43 | disposition home or self-care (01) | DRG 958 ==
LOC: ED 15:42 → 2N 20:08 → SUATTDRO 20:08 → 2N 20:53 → 2S 05-22 16:44

== ENCOUNTER 2022-05-27 17:07 | Inpatient (IN) ==
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
[2022-05-27 18:25] LABS: Basophils # (auto) 0.03 K/uL (0-0.2); Basophils % (auto) 0.2 %; Eosinophils # (auto) 0.01 K/uL (0-0.50); Eosinophils % (auto) 0.1 %; Hematocrit (blood only) 34.5 % (40.1-51.0); Hemoglobin 12.8 g/dl (14.0-18.0); Immature Granulocytes # (auto) 0.08 K/uL (0.00-0.02); Immature Granulocytes % (auto) 0.5 %; Lymphocytes # (auto) 0.48 K/uL (1.2-3.4); Lymphocytes % (auto) 3.1 %; Mean Corpuscular Hemoglobin 35.1 pg (25.0-34.0); Mean Corpuscular Hgb Conc 37.1 g/dL (32.0-36.0); Mean Corpuscular Volume 94.5 fL (80.0-100.0); Mean Platelet Volume 9.8 fL (9.4-12.4); Monocytes % (auto) 7.7 %; Neutrophils # (auto) 13.77 K/uL (1.4-6.5); Neutrophils % (auto) 88.4 %; Platelet Count 154 K/uL (130-400); RDW Standard Deviation 54.5 fL (36.4-46.3); Red Blood Count 3.65 M/uL (4.63-6.08); White Blood Count 15.57 K/ul (4.8-10.8)
[2022-05-27 18:38] LABS: Partial Thromboplastin Ratio 0.9; Partial Thromboplastin Time 25.6 Seconds (21.0-31.0); Prothrombin Time 10.9 Seconds (9.0-12.0)
--- NOTE | 2022-05-27 18:56 | XRay Report ---
XR chest 1V portable HISTORY: Atypical Chest Pain COMPARISON: Chest 05/23/2022. FINDINGS: There is a left-sided dual-chamber pacemaker. The heart remains enlarged. There is progress adriana mild to moderate pulmonary edema and small bilateral pleural effusions. No pneumothorax. IMPRESSION: Interval progression of the pulmonary edema and small bilateral pleural effusions. ACT 112: Negative or not required by law. Electronically signed by: Sherman Garibay M.D. 05/27/2022 6:54 PM
[2022-05-27 19:19] LABS: Alanine Aminotransferase 39 U/L (7-52); Albumin Globulin Ratio 1.5 (0.9-2); Albumin Level 3.9 gm/dl (3.4-5.0); Alkaline Phosphatase 58 U/L (34-104); Anion Gap 10 (3-11); Aspartate Aminotransferase 82 U/L (13-39); BUN Creatinine Ratio 22.5 (10-20); Bilirubin,Total 1.7 mg/dl (0.2-1.0); Blood Urea Nitrogen 20 mg/dl (6-23); Calcium 9.5 mg/dl (8.5-10.1); Carbon Dioxide 24 mmol/L (21-32); Chloride 97 mmol/L (98-107); Est GFR (African American) 89.1 ml/min; Est GFR (Non-African American) 76.9 ml/min; Globulin 2.6 gm/dl (2.5-4.0); Glucose 286 mg/dl (70-99(Fasting)); Lipase 7 U/L (11-82); Potassium 4.1 mmol/L (3.5-5.1); Sodium 131 mmol/L (136-145); Total Protein 6.5 gm/dl (6.0-8.3)
[2022-05-27 19:44] LABS: Troponin I High Sensitivity 15810.7 pg/ml (0-20)
[2022-05-27] MEDS ORDERED: OPTIRAY 320 500ml IV ONE (19:48)
[2022-05-27] MEDS ORDERED: HYDROmorphone INJ 0.5 MG/0.5 ML SYR IV PRN (20:31)
[2022-05-27] MEDS ORDERED: ONDANSETRON INJ 2 MG/ML 2 ML VIAL IV STA (20:31)
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
[2022-05-27] MEDS ORDERED: FUROSEMIDE INJ 20 MG/2 ML VIAL IV ONE (21:16)
[2022-05-27] MEDS ORDERED: METOPROLOL TARTRATE 1 MG/ML VIAL IV STA (21:16)
[2022-05-27] MEDS ORDERED: NITROGLYCERIN 2% OINTMENT 30GM TUBE EXT STA (21:16)
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
[2022-05-28] MEDS ORDERED: GLUCAGON FOR INJ 1 MG VIAL SQ PRN (00:31)
[2022-05-28] MEDS ORDERED: CARBOHYDRATES FOR HYPOGLYCEMIA PO PRN (00:31)
[2022-05-28] MEDS ORDERED: GLUCOSE 10 TAB/TUBE PO PRN (00:31)
[2022-05-28] MEDS ORDERED: GLUCOSE 40% GEL 15 GM TUBE PO PRN (00:31)
[2022-05-28] MEDS ORDERED: DEXTROSE 50% 50 ML SYRINGE IV PRN (00:31)
--- NOTE | 2022-05-28 00:58 | Billing Data ---
Date of Service May 27, 2022 Coding Level of Care Code 42836 Initial Inpt Care Lvl 3
[2022-05-28] MEDS ORDERED: FUROSEMIDE 40 MG/4 ML VIAL IV STA (01:09)
[2022-05-28] MEDS ORDERED: INSULIN ASPART PER UNIT SC STA (01:11)
[2022-05-28] MEDS ORDERED: ATORVASTATIN 40 MG TAB PO STA (01:11)
[2022-05-28] MEDS ORDERED: LANTUS PER UNIT CHARGE SQ STA (01:11)
--- NOTE | 2022-05-28 04:31 | Communication Note ---
Date of Service: May 28, 2022 notified by [employer] that pacemaker is functioning properly and that he has atrial flutter holding nitropaste for bp 100/65
[2022-05-28] MEDS ORDERED: NITROGLYCERIN 2% OINTMENT 30GM TUBE EXT SCH (06:00)
[2022-05-28] MEDS: INSULIN ASPART PER UNIT SC SCH ×4 (06:03→21:01)
[2022-05-28 06:13] LABS: Basophils # (auto) 0.02 K/uL (0-0.2); Basophils % (auto) 0.2 %; Hematocrit (blood only) 32.6 % (40.1-51.0); Immature Granulocytes # (auto) 0.12 K/uL (0.00-0.02); Lymphocytes # (auto) 0.61 K/uL (1.2-3.4); Lymphocytes % (auto) 4.9 %; Mean Corpuscular Hemoglobin 35.3 pg (25.0-34.0); Mean Corpuscular Hgb Conc 36.8 g/dL (32.0-36.0); Mean Corpuscular Volume 95.9 fL (80.0-100.0); Mean Platelet Volume 10.2 fL (9.4-12.4); Monocytes # (auto) 1.29 K/uL (0.24-0.82); Monocytes % (auto) 10.3 %; Neutrophils # (auto) 10.53 K/uL (1.4-6.5); Neutrophils % (auto) 83.6 %; Platelet Count 150 K/uL (130-400); RDW Coefficient of Variation 15.9 % (11.5-14.5); RDW Standard Deviation 55.2 fL (36.4-46.3); White Blood Count 12.57 K/ul (4.8-10.8)
[2022-05-28 06:37] LABS: Albumin Globulin Ratio 1.4 (0.9-2); Albumin Level 3.6 gm/dl (3.4-5.0); BUN Creatinine Ratio 20.8 (10-20); Bilirubin,Total 1.5 mg/dl (0.2-1.0); Calcium 8.9 mg/dl (8.5-10.1); Chol HDL Ratio 2.5 (0-5); Est GFR (African American) 72.8 ml/min; Est GFR (Non-African American) 62.8 ml/min; Globulin 2.5 gm/dl (2.5-4.0); Magnesium 1.7 mg/dl (1.7-2.4); Phosphorus 3.5 mg/dl (2.5-4.9); Total Protein 6.1 gm/dl (6.0-8.3)
[2022-05-28 07:32] LABS: Estimated Average Glucose 140 mg/dl; Hemoglobin A1C 6.5 % (4.5-5.6)
--- NOTE | 2022-05-28 09:07 | Electrocardiogram Report ---
Test Reason : Blood Pressure : / mmHG Vent. Rate : 111 BPM Atrial Rate : 111 BPM P-R Int : 000 ms QRS Dur : 158 ms QT Int : 384 ms P-R-T Axes : 045 141 118 degrees QTc Int : 522 ms Atrial sensing, ventricular pacing Diffuse Nonspecific ST and T wave abnormality Abnormal ECG When compared with ECG of 22-MAY-2022 06:11, Electronic ventricular pacemaker has replaced Sinus rhythm Confirmed by Festus Sheets ([id number]) on 05/28/2022 9:06:40 AM Referred By: REFERRED SELF Confirmed By:Festus Sheets
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
[2022-05-28] MEDS ORDERED: fentaNYL citrate 100 MCG/2 ML VIAL ONE (10:45)
[2022-05-28] MEDS ORDERED: HEPARIN (PORCINE) 1000 UNIT/ML 10 ML (CATH LAB USE ONLY) ONE (10:45)
[2022-05-28] MEDS ORDERED: MIDAZOLAM HCL 1 MG/ML 2ML VIAL ONE (10:45)
[2022-05-28] MEDS ORDERED: niCARdipine HCL INJ 2.5 MG/ML 10 ML AMP ONE (10:45)
[2022-05-28] MEDS ORDERED: NITROGLYCERIN/D5W 100MCG/ML 20ML SYR ONE (10:46)
--- NOTE | 2022-05-28 11:59 | Pre Anesthesia Assessment ---
Date of Service May 28, 2022 Pre Sedation Assessment Vital Signs Temp Pulse Pulse Resp BP BP Pulse Ox 05/28/22 11:45 86 14 102/54 L 99 05/28/22 11:23 90 16 108/67 98 05/28/22 10:24 96 H 16 107/76 98 05/28/22 10:03 124/67 05/28/22 10:03 108 H 28 H 93 05/28/22 10:00 112 H 28 H 92 05/28/22 09:45 96 H 26 H 92 05/28/22 09:30 101 H 26 H 92 05/28/22 09:15 96 H 25 H 94 05/28/22 09:09 108/64 05/28/22 09:09 97 H 24 93 05/28/22 09:01 99 H 21 93 05/28/22 09:00 100 H 22 94 05/28/22 08:45 93 H 22 93 05/28/22 08:30 92 H 22 95 05/28/22 08:15 93 H 24 92 05/28/22 08:00 94 H 25 H 93 05/28/22 08:00 122/62 05/28/22 07:45 96 H 22 92 05/28/22 07:30 92 H 26 H 94 05/28/22 07:15 90 23 95 05/28/22 07:01 125/62 05/28/22 07:01 98 H 25 H 93 05/28/22 07:00 95 H 26 H 94 05/28/22 06:35 05/28/22 03:00 05/28/22 06:23 100/65 05/28/22 06:07 97 H 23 107/86 93 05/28/22 05:31 92 H 20 115/69 95 05/28/22 03:10 94 H 20 105/53 L 93 05/28/22 01:00 102 H 18 129/82 93 05/27/22 23:06 98 H 18 109/70 93 05/27/22 21:47 105 H 124/74 05/27/22 19:00 110 H 18 97 05/27/22 19:00 109 H 96 05/27/22 17:15 36.8 C 111 H 18 131/76 93 05/27/22 17:15 36.8 C 111 H 18 131/76 93 O2 Del Method O2 Flow Rate 05/28/22 11:45 Room Air 05/28/22 11:23 Room Air 05/28/22 10:24 Room Air 05/28/22 10:03 05/28/22 10:03 Nasal Cannula 2 05/28/22 10:00 Nasal Cannula 2 05/28/22 09:45 Nasal Cannula 2 05/28/22 09:30 Nasal Cannula 2 05/28/22 09:15 Nasal Cannula 2 05/28/22 09:09 05/28/22 09:09 Nasal Cannula 2 05/28/22 09:01 Nasal Cannula 2 05/28/22 09:00 Nasal Cannula 2 05/28/22 08:45 Nasal Cannula 2 05/28/22 08:30 Nasal Cannula 3 05/28/22 08:15 Nasal Cannula 3 05/28/22 08:00 Nasal Cannula 3 05/28/22 08:00 05/28/22 07:45 Nasal Cannula 3 05/28/22 07:30 Nasal Cannula 3 05/28/22 07:15 Nasal Cannula 3 05/28/22 07:01 05/28/22 07:01 Nasal Cannula 3 05/28/22 07:00 Nasal Cannula 3 05/28/22 06:35 Nasal Cannula 3 05/28/22 03:00 Nasal Cannula 3 05/28/22 06:23 05/28/22 06:07 Nasal Cannula 3 05/28/22 05:31 Nasal Cannula 3 05/28/22 03:10 Nasal Cannula 3 05/28/22 01:00 Nasal Cannula 3 05/27/22 23:06 Nasal Cannula 3 05/27/22 21:47 05/27/22 19:00 Room Air 05/27/22 19:00 Room Air 05/27/22 17:15 05/27/22 17:15 Room Air Cardiovascular RRR, no murmur, no edema Additional Comments: Chest tender to palpation Respiratory normal respiratory effort, lungs clear to auscultation Additional Comments: bibasilar crackles Pre-Sedation Airway Assessment Smoking Status: Never smoker Hx Sleep Apnea: No Hx Difficult Intubation: No Short, Thick Neck: No Thyromental Distance: > or= 3.5 Finger Breadths Oral Cavity: + WNL Mallampati Class: III ASA: ASA3 NPO Status Date of Last Intake of Fluids: 05/27/22 Time of Last Intake of Fluids: 20:00 Date of Last Intake of Solid Food: 05/27/22 Time of Last Intake of Solid Foods: 20:00 Notes The planned sedation has been discussed with the patient. Informed Consent was obtained. I have identified the patient, determined the appropriateness of sedation and have assessed the patient immediately prior to the procedure. All medicine(s) and interventions are by my order.
--- NOTE | 2022-05-28 13:36 | Cardiac Catheterization ---
[facility] Data: Digital Media Analyst Cardiac Status Clinical evaluation leading to the procedure CAD Presenation: Non STEMI Anginal Classification: CCS IV Heart Failure: Yes Cardiogenic Shock within 24 Hours: No Cardiac Arrest within 24 Hours: No STEMI OR Non-STEMI Symptom Onset Date: 05/27/22 Coronary Anatomy Left Main (% Stenosis): Distal (95%) LAD (% Stenosis): Ostial (50%), Proximal (60%) and Mid (99%) D1 (% Stenosis): Proximal (40%) Circumflex (% Stenosis): Ostial ( 80%) OM1 (% Stenosis): Normal OM2 (% Stenosis): Normal RCA (% Stenosis): Proximal (Long eccentric 70 to 80%) R PDA (% Stenosis): Normal (Mild) R PL1 (% Stenosis): Normal (Mild) Diagnostic Physicians Name: Denis Belle MD, PhD Closure Device Percutaneous Entry Location: Radial Closure Device: Radial Band Recommendations: Management Recommendatons (Transfer to tertiary center for high risk multivessel PCI.) Intraprocedure Events Significant Disection: No Perforation: No Cardiac Cath Procedure Full Procedure Date May 28, 2022 Pre-Procedure Diagnosis Pre-Procedure Diagnosis: Non STEMI AUC Score AUC Score: 07 Post-Procedure Diagnosis Post-Procedure Diagnosis: Severe CAD Procedure(s) Performed Procedure(s) Performed: Coronary Angiography Data Processing Operator Denis Belle MD, PhD Estimated Blood Loss Estimated Blood Loss: Less than 10 mm Medication(s) Medication(s): Fentanyl, Heparin, Lidocaine 1%, Nicardipine, Nitroglycerin and Versed Summary of Findings Brief description: Patient was brought to the cardiac catheterization suite where he was shaved and prepped in a sterile fashion. Sedated using IV Versed and fentanyl. Soft tissues of the right wrist were anesthetized using 2 mL of 1% Xylocaine. The right radial artery was accessed using a modified Seldinger technique and a 6 [place] radial artery glide sheath was placed. Patient was provided anticoagulation with IV heparin and antispasmodics including verapamil and nitroglycerin. All catheters were advanced and exchanged over a 0.035 J-tip wire. Left coronary angiography in orthogonal views with a 5 [place] TIGR 4 diagnostic catheter. Right coronary angiography in orthogonal views with a 5 [place] TIGR 4 diagnostic catheter. Catheters were removed. Radial artery sheath was removed. Hemostasis was obtained using a TR band. Patient remained hemodynamically stable and asymptomatic. He was returned to the recovery area. This ended the case. Coronary angiography findings: LMT: Large-caliber vessel which has diffuse disease, moderate calcification, and distal calcified stenosis of 95%. Large caliber and transapical. There is an ostial to proximal stenosis of 50 to 60%. The mid vessel has diffuse disease with up to 99% stenosis. There are 2 large septal trunks and the first diagonal appears to be large and branching. It has mild less than 40% stenosis. The distal LAD has diffuse mild disease and EHSAN I flow. Left circumflex: Large caliber and nondominant. First OM is medium to large in caliber and branching. Second OM is very large in caliber with 2 major branches. After this, the distal vessel becomes medium in the AV groove and terminates as a small posterolateral branch. The ostium of the circumflex appears to have 80% stenosis which is a continuation of the left main disease. The remainder of the circumflex and its branches have no more than mild scattered plaques. RCA: Large caliber and dominant. Bifurcates distally into a large posterior lateral and a large PDA. The posterior lateral has multiple branches. The PLB and the PDA have no more than mild luminal irregularities. The proximal RCA has a long eccentric stenosis of 80%. Hemodynamics Rest Ao:: 91/62 mmHg, mean 75 mmHg Final Ao: 84/62 mmHg, mean 70 mmHg LV: Not performed Recommendations Recommendations: Management Recommendatons (Transfer to tertiary center for high risk multivessel PCI.) Radiation Exposure (mGy) 1057 mGy, fluoroscopy time 2.9 minutes Contrast (mls) 80 mm Anesthesia 1 mg IV Versed, 25 mcg IV fentanyl Procedural Complication(s) None I attest to the content of the Intraoperative Record and any orders documented therein. Any exceptions are noted below. [facility] Card Cath Procedure Codes Cardiac Catheterization Procedure 1: Cardiovascular Cath Procedures: 98884 Coronaries Moderate Sedation Procedure 1: Sedation/Anesthesia: 00786 Mod Sedation by the same physician;Init15 Min Child Age 5 & Up (13 minutes) PG Care Time/CCT Total # of Minutes Spent Total Time Spent with Patient: Total time spent is greater than 50% in coordination of care (as documented) at patient's floor/unit and/or counseling patient:
--- NOTE | 2022-05-28 14:04 | Post Anesthesia Assessment ---
Date of Service May 28, 2022 Post Sedation Assessment Vital Signs Temp Pulse Pulse Resp BP BP Pulse Ox 05/28/22 13:50 96 H 16 110/62 98 05/28/22 13:46 80 16 110/52 L 98 05/28/22 13:15 80 14 108/66 98 05/28/22 13:00 82 16 106/56 L 98 05/28/22 12:45 85 14 110/61 99 05/28/22 12:30 90 16 106/55 L 98 05/28/22 12:15 84 14 105/57 L 97 05/28/22 12:00 85 14 101/55 L 99 05/28/22 11:45 86 14 102/54 L 99 05/28/22 11:23 90 16 108/67 98 05/28/22 10:24 96 H 16 107/76 98 05/28/22 10:03 124/67 05/28/22 10:03 108 H 28 H 93 05/28/22 10:00 112 H 28 H 92 05/28/22 09:45 96 H 26 H 92 05/28/22 09:30 101 H 26 H 92 05/28/22 09:15 96 H 25 H 94 05/28/22 09:09 108/64 05/28/22 09:09 97 H 24 93 05/28/22 09:01 99 H 21 93 05/28/22 09:00 100 H 22 94 05/28/22 08:45 93 H 22 93 05/28/22 08:30 92 H 22 95 05/28/22 08:15 93 H 24 92 05/28/22 08:00 94 H 25 H 93 05/28/22 08:00 122/62 05/28/22 07:45 96 H 22 92 05/28/22 07:30 92 H 26 H 94 05/28/22 07:15 90 23 95 05/28/22 07:01 125/62 05/28/22 07:01 98 H 25 H 93 05/28/22 07:00 95 H 26 H 94 05/28/22 06:35 05/28/22 03:00 05/28/22 06:23 100/65 05/28/22 06:07 97 H 23 107/86 93 05/28/22 05:31 92 H 20 115/69 95 05/28/22 03:10 94 H 20 105/53 L 93 05/28/22 01:00 102 H 18 129/82 93 05/27/22 23:06 98 H 18 109/70 93 05/27/22 21:47 105 H 124/74 05/27/22 19:00 110 H 18 97 05/27/22 19:00 109 H 96 05/27/22 17:15 36.8 C 111 H 18 131/76 93 05/27/22 17:15 36.8 C 111 H 18 131/76 93 O2 Del Method O2 Flow Rate 05/28/22 13:50 Room Air 05/28/22 13:46 Room Air 05/28/22 13:15 Room Air 05/28/22 13:00 Room Air 05/28/22 12:45 Room Air 05/28/22 12:30 Room Air 05/28/22 12:15 Room Air 05/28/22 12:00 Room Air 05/28/22 11:45 Room Air 05/28/22 11:23 Room Air 05/28/22 10:24 Room Air 05/28/22 10:03 05/28/22 10:03 Nasal Cannula 2 05/28/22 10:00 Nasal Cannula 2 05/28/22 09:45 Nasal Cannula 2 05/28/22 09:30 Nasal Cannula 2 05/28/22 09:15 Nasal Cannula 2 05/28/22 09:09 05/28/22 09:09 Nasal Cannula 2 05/28/22 09:01 Nasal Cannula 2 05/28/22 09:00 Nasal Cannula 2 05/28/22 08:45 Nasal Cannula 2 05/28/22 08:30 Nasal Cannula 3 05/28/22 08:15 Nasal Cannula 3 05/28/22 08:00 Nasal Cannula 3 05/28/22 08:00 05/28/22 07:45 Nasal Cannula 3 05/28/22 07:30 Nasal Cannula 3 05/28/22 07:15 Nasal Cannula 3 05/28/22 07:01 05/28/22 07:01 Nasal Cannula 3 05/28/22 07:00 Nasal Cannula 3 05/28/22 06:35 Nasal Cannula 3 05/28/22 03:00 Nasal Cannula 3 05/28/22 06:23 05/28/22 06:07 Nasal Cannula 3 05/28/22 05:31 Nasal Cannula 3 05/28/22 03:10 Nasal Cannula 3 05/28/22 01:00 Nasal Cannula 3 05/27/22 23:06 Nasal Cannula 3 05/27/22 21:47 05/27/22 19:00 Room Air 05/27/22 19:00 Room Air 05/27/22 17:15 05/27/22 17:15 Room Air Recovery Score Activity: Moves 4 extremities Respiration: Deep Breath/Cough Circulation: +/-20% PreAnes Value Consciousness: Fully Awake Oxygen Saturation: > 92% On Room Air Post Anesthesia Score: 10 Discharge Sedation Level of Care: Phase I Post Sedation Plan On clinical assessment, the patient appears to have tolerated the sedation without complications. Patient is recovering as anticipated. Patient will continue to be monitored by nursing and may be discharged when sedation discharge criteria are met per below protocol. Upon Completions of procedure up to 15 minutes continue every 5 minute vital signs and the P.A.R. score; then discharge to a Phase I or Fast Track to Phase II per the following guidelines: * Discharge Patient to appropriate Phase II area if PAR is 8 or greater or return to pre- procedure baseline. The post - procedure orders will be as directed. * If PAR score is less than 8 or not return to pre-procedure baseline then patient will follow Phase I monitoring till PAR is reached for Phase II. The Phase I may be done in procedure room or may call to secure a Phase I area. * If naloxone or flumazenil are used for reversal, hold in Phase I for continued monitoring from when last reversal dose was given for a minimum of 60 minutes or longer pending the nurse and/or physician discretion of patient condition before discharge to Phase II. Please call the Sedation Physician to re-evaluate and complete post-note for discharge to Phase II area. Do NOT discharge from procedure sedation or Phase 1 until post- sedation evaluation note is complete by procedure /sedation MD Sedation Discharge Instructions to be given to the patient at discharge to home. [facility] Procedure Codes (Charges) Indication for Procedure Indication for procedure: NSTEMI Sedation/Anesthesia Procedure 1: Sedation/Anesthesia: 69502 Mod Sedation by the same physician;Init15 Min Child Age 5 & Up Total Sedation Time (minutes): 12
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
[2022-05-28] MEDS ORDERED: Heparin IV Adult Wt-Based Standard *NO* Bolus Protocol IV SCH (15:45)
[2022-05-28] MEDS: ACETAMINOPHEN 500 MG TAB PO PRN (15:46)
[2022-05-28] MEDS: BENZONATATE 100 MG CAPSULE PO PRN ×2 (15:47→20:20)
[2022-05-28 16:31] LABS: Basophils # (auto) 0.02 K/uL (0-0.2); Basophils % (auto) 0.2 %; Eosinophils # (auto) 0.01 K/uL (0-0.50); Eosinophils % (auto) 0.1 %; Hematocrit (blood only) 33.1 % (40.1-51.0); Hemoglobin 12.3 g/dl (14.0-18.0); Immature Granulocytes # (auto) 0.07 K/uL (0.00-0.02); Immature Granulocytes % (auto) 0.5 %; Lymphocytes # (auto) 0.65 K/uL (1.2-3.4); Lymphocytes % (auto) 5.1 %; Mean Corpuscular Hemoglobin 35.9 pg (25.0-34.0); Mean Corpuscular Hgb Conc 37.2 g/dL (32.0-36.0); Mean Corpuscular Volume 96.5 fL (80.0-100.0); Monocytes # (auto) 1.06 K/uL (0.24-0.82); Monocytes % (auto) 8.2 %; Neutrophils # (auto) 11.05 K/uL (1.4-6.5); Neutrophils % (auto) 85.9 %; Platelet Count 147 K/uL (130-400); RDW Coefficient of Variation 16.1 % (11.5-14.5); Red Blood Count 3.43 M/uL (4.63-6.08); White Blood Count 12.86 K/ul (4.8-10.8)
[2022-05-28 16:48] LABS: INR 1.1 (0.9-1.1); Partial Thromboplastin Ratio 1.1; Partial Thromboplastin Time 29.1 Seconds (21.0-31.0); Prothrombin Time 11.5 Seconds (9.0-12.0)
[2022-05-28] MEDS: HEPARIN SODIUM/DEXTROSE 25,000 UNITS/500 ML BAG IV SCH (17:23)
[2022-05-28] MEDS: LANTUS PER UNIT CHARGE SQ SCH (21:02)
[2022-05-29 00:21] LABS: Partial Thromboplastin Ratio 1.6; Partial Thromboplastin Time 43.9 Seconds (21.0-31.0)
[2022-05-29 08:03] LABS: Partial Thromboplastin Ratio 1.8
[2022-05-29] MEDS: INSULIN ASPART PER UNIT SC SCH ×4 (08:06→20:09)
[2022-05-29] MEDS: LANTUS PER UNIT CHARGE SQ SCH ×2 (08:24→20:13)
[2022-05-29 08:26] LABS: Partial Thromboplastin Time 50.4 Seconds (21.0-31.0)
[2022-05-29] MEDS: FUROSEMIDE 40 MG/4 ML VIAL IV SCH (08:27)
[2022-05-29] MEDS: ATORVASTATIN 40 MG TAB PO SCH (08:30)
[2022-05-29 08:42] LABS: Hematocrit (blood only) 31.9 % (40.1-51.0); Hemoglobin 11.6 g/dl (14.0-18.0); Mean Corpuscular Hemoglobin 35.2 pg (25.0-34.0); Mean Corpuscular Hgb Conc 36.4 g/dL (32.0-36.0); Mean Corpuscular Volume 96.7 fL (80.0-100.0); Platelet Count 149 K/uL (130-400); RDW Coefficient of Variation 16.1 % (11.5-14.5); RDW Standard Deviation 56.7 fL (36.4-46.3); White Blood Count 10.19 K/ul (4.8-10.8)
[2022-05-29 08:52] LABS: BUN Creatinine Ratio 29.5 (10-20); Calcium 8.6 mg/dl (8.5-10.1); Creatinine Clr Calc Pharmacy 63.5 ml/min; Est GFR (African American) 83.1 ml/min; Est GFR (Non-African American) 71.7 ml/min; Potassium 3.7 mmol/L (3.5-5.1)
[2022-05-29] MEDS ORDERED: METOPROLOL TARTRATE 25 MG TAB PO SCH ×2 (09:00→21:00)
[2022-05-29] MEDS: HEPARIN SODIUM/DEXTROSE 25,000 UNITS/500 ML BAG IV SCH (09:09)
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
[2022-05-29] MEDS: ACETAMINOPHEN 500 MG TAB PO PRN ×2 (11:47→20:17)
--- NOTE | 2022-05-29 12:43 | Cardiac Catheterization ---
[facility] Data: [employer] Chemist Cardiac Status Clinical evaluation leading to the procedure Diagnostic Physicians Name: Denis Belle MD, PhD PG Care Time/CCT Total # of Minutes Spent Total Time Spent with Patient: Total time spent is greater than 50% in coordination of care (as documented) at patient's floor/unit and/or counseling patient:
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
[2022-05-29] MEDS: BENZONATATE 100 MG CAPSULE PO PRN ×2 (12:58→20:17)
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
[2022-05-29] MEDS ORDERED: METOPROLOL TARTRATE 25 MG TAB PO ONE (21:00)
[2022-05-30] MEDS: HEPARIN SODIUM/DEXTROSE 25,000 UNITS/500 ML BAG IV SCH ×2 (00:36→15:06)
[2022-05-30 06:29] LABS: Hematocrit (blood only) 29.2 % (40.1-51.0); Hemoglobin 10.8 g/dl (14.0-18.0); Mean Corpuscular Hemoglobin 35.2 pg (25.0-34.0); Mean Corpuscular Volume 95.1 fL (80.0-100.0); Mean Platelet Volume 10.6 fL (9.4-12.4); Platelet Count 133 K/uL (130-400); RDW Coefficient of Variation 15.9 % (11.5-14.5); RDW Standard Deviation 54.8 fL (36.4-46.3); Red Blood Count 3.07 M/uL (4.63-6.08); White Blood Count 8.88 K/ul (4.8-10.8)
[2022-05-30 06:54] LABS: Albumin Globulin Ratio 1.2 (0.9-2); Albumin Level 3.1 gm/dl (3.4-5.0); BUN Creatinine Ratio 34.1 (10-20); Bilirubin,Total 1.9 mg/dl (0.2-1.0); Creatinine Clr Calc Pharmacy 66.3 ml/min; Est GFR (African American) 87.5 ml/min; Est GFR (Non-African American) 75.5 ml/min; Globulin 2.5 gm/dl (2.5-4.0); Potassium 3.3 mmol/L (3.5-5.1); Total Protein 5.6 gm/dl (6.0-8.3)
[2022-05-30 07:01] LABS: Partial Thromboplastin Time 53.8 Seconds (21.0-31.0)
[2022-05-30] MEDS: BENZONATATE 100 MG CAPSULE PO PRN ×2 (08:51→17:36)
[2022-05-30] MEDS: ACETAMINOPHEN 500 MG TAB PO PRN ×2 (08:51→17:36)
[2022-05-30] MEDS: POTASSIUM CHLORIDE CRTAB 20 MEQ TABCR PO STA ×2 (08:51→09:41)
[2022-05-30] MEDS: ATORVASTATIN 40 MG TAB PO SCH (08:52)
[2022-05-30] MEDS: INSULIN ASPART PER UNIT SC SCH ×3 (08:53→17:32)
[2022-05-30] MEDS: LANTUS PER UNIT CHARGE SQ SCH (08:53)
[2022-05-30] MEDS ORDERED: METOPROLOL SUCC 25MG EXT REL TAB PO SCH (09:00)
[2022-05-30] MEDS ORDERED: ASPIRIN 81 MG ECTAB PO SCH (09:00)
[2022-05-30] MEDS: FUROSEMIDE 40 MG/4 ML VIAL IV SCH (09:00)
[2022-05-30] MEDS ORDERED: POTASSIUM CHLORIDE 20 MEQ/15 ML UDC PO STA (11:42)
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
[2022-05-30] MEDS ORDERED: FUROSEMIDE 40 MG/4 ML VIAL IV ONE (14:27)
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
== END 2022-05-30 19:48 | disposition short-term general hospital (02) | DRG 280 ==
LOC: ED 17:07 → EDINP 23:58 → SUATTDRO 23:58 → EDINP 05-28 12:26 → 2S 05-28 15:04
PROC: CLB.CCO (2022-05-28 11:00)